=== PATIENT | female | born 1950 | race Caucasian/White ===

== ENCOUNTER 2017-12-28 09:17 | Emergency (ER) | payer OTHER ==
[~2017-12-28] VITALS: Ht 162.6 cm; Wt 66.2 kg
[2017-12-28] MEDS ORDERED: SYNTHROID100 MCG (09:36)
[2017-12-28] MEDS ORDERED: EVISTA60 MG (09:36)
== END 2017-12-28 13:16 | disposition home or self-care (01) ==
LOC: ER 09:17
DX: K29.60 Other gastritis without bleeding (principal)

== ENCOUNTER 2018-09-27 23:35 | Emergency (ER) | payer OTHER ==
[~2018-09-27] VITALS: Ht 162.6 cm; Wt 63.5 kg
[~2018-09-27 23:35] MED LIST: EVISTA60 MG; SYNTHROID100 MCG
[2018-09-28] MEDS ORDERED: ZOFRAN4 MG PO (03:33)
[2018-09-28] MEDS ORDERED: PEPCID40 MG PO (03:33)
[2018-09-28] MEDS ORDERED: PROTONIX40 MG PO (03:33)
== END 2018-09-28 04:00 | disposition home or self-care (01) ==
LOC: ER 23:35
DX: K29.60 Other gastritis without bleeding (principal)

== ENCOUNTER 2023-09-01 21:53 | Emergency (ER) | payer OTHER ==
[~2023-09-01] VITALS: Ht 170.2 cm; Wt 75.7 kg
[~2023-09-01 21:53] MED LIST changes: +PEPCID40 MG PO; +PROTONIX40 MG PO; +ZOFRAN4 MG PO
[2023-09-01] MEDS ORDERED: LIDOCAINE HCL 500 MG/50 ML 1% IJ ONE (22:45)
== END 2023-09-02 02:01 | disposition home or self-care (01) ==
LOC: ER
DX: S00.83XA Contusion of other part of head, initial encounter (principal); W19.XXXA Unspecified fall, initial encounter; Y93.89 Activity, other specified; Y92.488 Other paved roadways as the place of occurrence of the external cause; Y99.8 Other external cause status

== ENCOUNTER 2023-09-10 14:06 | Emergency (ER) | payer OTHER ==
[~2023-09-10] VITALS: Ht 157.5 cm; Wt 61.2 kg
== END 2023-09-10 17:54 | disposition home or self-care (01) ==
LOC: ER 14:07
DX: Z48.02 Encounter for removal of sutures (principal)